=== PATIENT | female | born 1960 | race Caucasian/White ===

== ENCOUNTER 2018-06-28 16:53 | Inpatient (IN) | payer BC ==
[~2018-06-28] VITALS: Ht 175.3 cm; Wt 122.6 kg
--- OUTSIDE RECORDS SUMMARY | 2018-06-28 16:55 | XMS REPORT ---
Author Author [facility] Address Unknown Phone Unavailable Care Team Providers Care Case Fitter Name Role Phone Unavailable Unavailable Payers Payer Name Policy Type Policy Number Effective Date Expiration Date Problems This patient has no known problems. Allergies, Adverse Reactions, Alerts Allergy Name Allergy Type Status Severity Reaction(s) Onset Date Inactive Date Treating Clinician Comments Penicillins DA Active U 2016-05-19 00:00:00 Cephalosporins DA Active U 2016-05-19 00:00:00 Betalactams DA Active U 2016-05-19 00:00:00 Carbapenems DA Active U 2016-05-19 00:00:00 Medications This patient has no known medications.
--- OUTSIDE RECORDS SUMMARY | 2018-06-28 16:55 | XMS REPORT | Continuity of Care Document ---
Author Author [facility] Address Unknown Phone Unavailable Problems Problem Status Onset Date Classification Date Reported Comments Source History of heart failure 06/28/2018 Diagnosis 06/28/2018 [facility] Acute exacerbation of chronic congestive heart failure 06/28/2018 Diagnosis 06/28/2018 [facility] Dyspnea at rest 06/28/2018 Diagnosis 06/28/2018 [facility] Medications Medication Details Route Status Patient Instructions Ordering Provider Order Date Source Levothyroxine Sodium 0.05 MG Oral Tablet levothyroxine 50 mcg tablet Active [facility] Metoprolol Tartrate 25 MG Oral Tablet metoprolol tartrate 25 mg tablet Active [facility] Albuterol 0.09 MG/ACTUAT Metered Dose Inhaler ProAir HFA 90 mcg/actuation aerosol inhaler Active [facility] quetiapine 200 MG Oral Tablet quetiapine 200 mg tablet Active [facility] Risperidone 3 MG Oral Tablet risperidone 3 mg tablet Active [facility] Risperidone 4 MG Oral Tablet risperidone 4 mg tablet Active [facility] Allergies, Adverse Reactions, Alerts Substance Category Reaction Severity Reaction type Status Date Reported Comments Source Immunizations Immunization Date Given Site Status Last Updated Comments Source Results Order Name Results Value Reference Range Date Interpretation Comments Source Vital Signs Vital Sign Value Date Comments Source Encounters Location Location Details Encounter Type Encounter Number Reason For Visit Attending Provider ADM Date DC Date Status Source [place] - [facility] - [id number] Giovanna Anderson, [employer]: [address] [place] [address], Ph. [id number] Giovanna Anderson 06/28/2018 [facility] Procedures Procedure Code Date Perfomer Comments Source
--- OUTSIDE RECORDS SUMMARY | 2018-06-28 16:55 | XMS REPORT | Encounter Summary ---
Author Organization Unknown Address [address] [place] [address] Phone [phone] Reason for Visit Medical Complaint Instructions 1. Dyspnea at rest 2. Acute exacerbation of chronic congestive heart failure patient follow up phone call - CHF f/u after ER 3. History of heart failure Discussion Note: None recorded. Patient educational handouts: No information available. Plan of Care Patient Instructions Pt instructed to go to ER [facility] for further managment. Reminders Provider Appointments None recorded. Lab None recorded. Referral None recorded. Procedures None recorded. Surgeries None recorded. Imaging None recorded. Medications Name Start Date levothyroxine 50 mcg tablet metoprolol tartrate 25 mg tablet ProAir HFA 90 mcg/actuation aerosol inhaler quetiapine 200 mg tablet risperidone 3 mg tablet risperidone 4 mg tablet Medications Administered None recorded. Vitals None recorded. Lab Results None recorded. Allergies None recorded. Problems None recorded. Procedures None recorded. Vaccine List None recorded. Social History None recorded. Past Encounters 06/28/2018 Dyspnea at Rest; Acute Exacerbation of Chronic Congestive Heart Failure; History of Heart Failure Giovanna Anderson [facility]: [address] [place] [address], Ph. History of Present Illness Cough Reported By: Patient HPI: Location: chest. Quality: productive cough. Duration: 7 days. Severity: severe. Onset/Timing: gradual. Context: no sick contacts, no foreign travel, non- smoker; unmanaged CHF. Modifying factors: ; pt was seen in ER 3 days ago, released with albuterol inhaler. Associated Symptoms: no sputum production, no sweats, no significant weight gain, no significant weight loss, no sore throat, no vomiting, no diarrhea, no rash, no nausea, no fever/chills, no muscle aches, no headache, shortness of breath, wheezing, difficulty breathing at night, fatigue, edema, morning cough Review of Systems:ROS as noted in the HPI Review of Systems Basic Reported By: Patient Physical Exam Adult Basic, Adult Female Complete Reported By: Patient Constitutional: General Appearance: healthy-appearing, morbidly obese. Level of Distress: chronically ill. Ambulation: limited ambulation Psychiatric: Mental Status: active and alert. Orientation: to time, to place, to person Lungs: Respiratory effort: no dyspnea, no tachypnea, no use of accessory muscles, no intercostal retractions. Auscultation: wet rales/crackles Cardiovascular: Heart Auscultation: RRR, no murmurs Musculoskeletal:: Extremities: edema
[2018-06-28] MEDS ORDERED: SODIUM CHLORIDE 0.9% 1000ML 1,000 ML IV STA (20:53)
--- NOTE | 2018-06-28 21:53 | Diagnostic Imaging Report ---
EXAMINATION: CHEST 2 VIEWS INDICATION: Cough, shortness of breath. COMPARISON: None FINDINGS: PA and lateral views TUBES and LINES: None. LUNGS: Lungs are well inflated. Left basilar linear opacities likely representing atelectasis. There is no evidence of pulmonary edema. PLEURA: No pleural effusion or pneumothorax. HEART AND MEDIASTINUM: The cardiomediastinal silhouette is unremarkable. BONES AND SOFT TISSUES: Age-indeterminate compression deformities of three vertebral bodies, likely T7, T11, and T12. Compression at T12 worse with 80% loss of height. Soft tissues are unremarkable. UPPER ABDOMEN: No free air under the diaphragm. IMPRESSION: Left basilar opacities likely representing atelectasis. Developing pneumonia not excluded. Age-indeterminate compression deformities of three vertebral bodies, likely T7, T11, and T12. Signed by: DR. Karthikeyan Moseley MD on 06/28/2018 9:50 PM
[2018-06-28 22:08] LABS: BASOPHILS % 0.3 % (0.0-1.0); EOSINOPHILS % 0.3 % (0.0-6.0); HEMATOCRIT 35.4 % (34.2-44.1); HEMOGLOBIN 12.2 g/dL (12.0-16.0); LYMPHOCYTES # (AUTO) 0.9 (1.0-3.2); LYMPHOCYTES % 10.7 % (18.0-39.1); MEAN CORPUSCULAR HEMOGLOBIN 31.5 pg (28-32); MEAN CORPUSCULAR HGB CONC 34.5 g/dL (31-35); MEAN CORPUSCULAR VOLUME 91.5 fL (81-99); NEUTROPHILS # (AUTO) 6.1 (2.1-6.9); NEUTROPHILS % 75.9 % (38.7-80.0); PLATELET COUNT 211 x10e3/uL (140-360); RED BLOOD COUNT 3.87 x10e6/uL (3.6-5.1); RED CELL DISTRIBUTION WIDTH 12.9 % (11.7-14.4)
[2018-06-28] MEDS ORDERED: QUETIAPINE FUM200 MG PO (22:11)
[2018-06-28] MEDS ORDERED: RISPERIDONE4 MG PO (22:11)
[2018-06-28] MEDS ORDERED: METOPROLOL TART25 MG PO (22:11)
[2018-06-28] MEDS ORDERED: LEVOTHYROXINE50 MCG PO (22:11)
[2018-06-28 22:20] LABS: ALANINE AMINOTRANSFERASE 24 IU/L (0-55); ALBUMIN 3.4 g/dL (3.5-5.0); ALBUMIN/GLOBULIN RATIO 0.8 (0.8-2.0); ALKALINE PHOSPHATASE 110 IU/L (40-150); ANION GAP 17.2 mmol/L (8-16); BLOOD UREA NITROGEN 11 mg/dL (7-26); BUN/CREATININE RATIO 14 (6-25); CALCIUM 9.7 mg/dL (8.4-10.2); CARBON DIOXIDE 21 mmol/L (22-29); CHLORIDE 101 mmol/L (98-107); CREATINE KINASE 230 IU/L (29-168); EST GLOMERULAR FILTRATION RATE > 60 ML/MIN (60-); GLUCOSE 131 mg/dL (74-118); POTASSIUM 3.2 mmol/L (3.5-5.1); SODIUM 136 mmol/L (136-145)
[2018-06-28] MEDS ORDERED: ALBUTEROL/IPRATROPIUM 3 ML NEB NEB ONE (22:45)
[2018-06-28] MEDS ORDERED: METHYLPREDNISOLONE SOD SUCC 125 MG/2ML VIAL IV ONE (22:45)
[2018-06-28] MEDS ORDERED: RISPERIDONE 1 MG TAB ONE (23:36)
[2018-06-28] MEDS: QUETIAPINE FUMARATE 100 MG TAB PO SCH (23:44)
[2018-06-28] MEDS: RISPERIDONE 1 MG TAB PO SCH (23:44)
[2018-06-29] VITALS (8 sets, daily range): BP systolic 126–139; BP diastolic 68–72
[2018-06-29] MEDS ORDERED: METOPROLOL TARTRATE INJ 1 MG/ML VIAL IV ONE (01:15)
[2018-06-29] MEDS: AZITHROMYCIN 500MG/SOD CHL 0.9% 250ML BAG IV SCH (02:30)
[2018-06-29] MEDS: SODIUM CHLORIDE 0.9% 1000ML 1,000 ML IV SCH ×3 (02:50→16:57)
[2018-06-29] MEDS: CEFTRIAXONE SOD 1 GRAM/0.9% SOD CHL 50ML BAG IV SCH (02:50)
[2018-06-29] MEDS: ALBUTEROL SULF 0.083% NEB SOLN 3 ML NEB NEB SCH ×6 (03:25→23:10)
[2018-06-29] MEDS ORDERED: METOPROLOL TARTRATE 25 MG TAB ONE (05:22)
[2018-06-29] MEDS: METHYLPREDNISOLONE SOD SUCC 40 MG/ML VIAL IV SCH ×3 (05:40→18:01)
[2018-06-29] MEDS: IPRATROPIUM BROMIDE 0.02% 2.5 ML NEB NEB SCH ×4 (07:40→23:10)
[2018-06-29 14:30] LABS: FREE THYROXINE INDEX 2.109 (1.4-3.8); THYROID STIMULATING HORMONE 0.732 uIU/mL (0.350-4.940)
[2018-06-29] MEDS: METOPROLOL TARTRATE 25 MG TAB PO SCH (17:07)
[2018-06-29] MEDS: RISPERIDONE 1 MG TAB PO SCH (21:00)
[2018-06-29] MEDS: QUETIAPINE FUMARATE 100 MG TAB PO SCH (21:02)
[2018-06-30] VITALS (8 sets, daily range): BP systolic 126–173; BP diastolic 70–82
[2018-06-30] MEDS: METHYLPREDNISOLONE SOD SUCC 40 MG/ML VIAL IV SCH ×3 (00:25→20:49)
[2018-06-30] MEDS: CEFTRIAXONE SOD 1 GRAM/0.9% SOD CHL 50ML BAG IV SCH (00:50)
[2018-06-30] MEDS: SODIUM CHLORIDE 0.9% 1000ML 1,000 ML IV SCH ×3 (00:57→09:04)
[2018-06-30] MEDS: AZITHROMYCIN 500MG/SOD CHL 0.9% 250ML BAG IV SCH (01:30)
[2018-06-30] MEDS: ALBUTEROL SULF 0.083% NEB SOLN 3 ML NEB NEB SCH ×6 (03:35→23:15)
[2018-06-30 05:27] LABS: BASOPHILS % 0.3 % (0.0-1.0); HEMATOCRIT 30.4 % (34.2-44.1); HEMOGLOBIN 10.3 g/dL (12.0-16.0); LYMPHOCYTES # (AUTO) 0.5 (1.0-3.2); LYMPHOCYTES % 7.1 % (18.0-39.1); MEAN CORPUSCULAR HEMOGLOBIN 31.8 pg (28-32); MEAN CORPUSCULAR HGB CONC 33.9 g/dL (31-35); MEAN CORPUSCULAR VOLUME 93.8 fL (81-99); MONOCYTES # (AUTO) 0.5 (0.2-0.8); MONOCYTES % 6.6 % (4.4-11.3); NEUTROPHILS # (AUTO) 6.3 (2.1-6.9); NEUTROPHILS % 84.1 % (38.7-80.0); PLATELET COUNT 206 x10e3/uL (140-360); RED BLOOD COUNT 3.24 x10e6/uL (3.6-5.1)
[2018-06-30 05:50] LABS: ANION GAP 11.1 mmol/L (8-16); BLOOD UREA NITROGEN 14 mg/dL (7-26); BUN/CREATININE RATIO 20 (6-25); CALCIUM 8.4 mg/dL (8.4-10.2); CARBON DIOXIDE 22 mmol/L (22-29); CHLORIDE 110 mmol/L (98-107); CREATININE, SERUM 0.69 mg/dL (0.57-1.11); EST GLOMERULAR FILTRATION RATE > 60 ML/MIN (60-); GLUCOSE 173 mg/dL (74-118); POTASSIUM 3.1 mmol/L (3.5-5.1); SODIUM 140 mmol/L (136-145)
[2018-06-30] MEDS: LEVOTHYROXINE SODIUM 50 MCG TAB PO SCH (06:00)
--- NOTE | 2018-06-30 06:53 | Diagnostic Imaging Report ---
EXAMINATION: CHEST SINGLE (PORTABLE) INDICATION: Pneumonia. COMPARISON: 06/28/2018 FINDINGS: PA and lateral views TUBES and LINES: None. LUNGS: Increased left basilar opacity, concerning for pneumonia. Central pulmonary venous congestion. PLEURA: Possible trace left pleural effusion. No right pleural effusion. No pneumothorax. HEART AND MEDIASTINUM: The cardiomediastinal silhouette is unremarkable. BONES AND SOFT TISSUES: Age indeterminate compression deformities, better seen on prior two view chest radiograph. Soft tissues are unremarkable. UPPER ABDOMEN: No free air under the diaphragm. IMPRESSION: Increased left basilar opacity concerning for pneumonia. Signed by: DR. Karthikeyan Moseley MD on 06/30/2018 6:50 AM
[2018-06-30 06:59] LABS: ANISOCYTOSIS S; BAND NEUTROPHILS % (MANUAL) 2 %; LYMPHOCYTES % (MANUAL) 9 % (19-48); MONOCYTES % (MANUAL) 10 % (3.4-9.0); NEUTROPHILS % (MANUAL) 79 % (40-74); PLATELET ESTIMATE ADEQUATE; PLATELET MORPHOLOGY COMMENT NORMAL; POIKILOCYTOSIS S; RBC MORPHOLOGY COMMENT NORMAL
[2018-06-30] MEDS: IPRATROPIUM BROMIDE 0.02% 2.5 ML NEB NEB SCH ×4 (07:00→23:15)
[2018-06-30] MEDS: METOPROLOL TARTRATE 25 MG TAB PO SCH ×2 (09:04→17:34)
[2018-06-30] MEDS ORDERED: POTASSIUM CHLORIDE 20 MEQ TAB CR PO ONE ×2 (09:30→11:00)
[2018-06-30] MEDS ORDERED: ACETAMINOPHEN 325 MG TAB PO PRN (18:00)
[2018-06-30] MEDS: RISPERIDONE 1 MG TAB PO SCH (20:49)
[2018-06-30] MEDS: QUETIAPINE FUMARATE 100 MG TAB PO SCH (20:49)
[2018-07-01] VITALS (7 sets, daily range): BP systolic 138–179; BP diastolic 75–95
[2018-07-01] MEDS: CEFTRIAXONE SOD 1 GRAM/0.9% SOD CHL 50ML BAG IV SCH
[2018-07-01] MEDS: AZITHROMYCIN 500MG/SOD CHL 0.9% 250ML BAG IV SCH
[2018-07-01] MEDS: ACETYLCYSTEINE 20% INHAL SOLN 30 ML VIAL INH SCH ×2 (03:00→15:53)
[2018-07-01] MEDS: ALBUTEROL SULF 0.083% NEB SOLN 3 ML NEB NEB SCH ×6 (03:30→23:15)
[2018-07-01] MEDS: LEVOTHYROXINE SODIUM 50 MCG TAB PO SCH (05:03)
[2018-07-01 05:27] LABS: BASOPHILS # (AUTO) 0.1 (0.0-0.1); BASOPHILS % 0.5 % (0.0-1.0); HEMATOCRIT 33.3 % (34.2-44.1); HEMOGLOBIN 11.1 g/dL (12.0-16.0); LYMPHOCYTES # (AUTO) 0.7 (1.0-3.2); LYMPHOCYTES % 6.7 % (18.0-39.1); MEAN CORPUSCULAR HEMOGLOBIN 31.4 pg (28-32); MEAN CORPUSCULAR HGB CONC 33.3 g/dL (31-35); MEAN CORPUSCULAR VOLUME 94.1 fL (81-99); MONOCYTES # (AUTO) 0.6 (0.2-0.8); MONOCYTES % 6.3 % (4.4-11.3); NEUTROPHILS # (AUTO) 8.5 (2.1-6.9); NEUTROPHILS % 83.8 % (38.7-80.0); PLATELET COUNT 239 x10e3/uL (140-360); RED BLOOD COUNT 3.54 x10e6/uL (3.6-5.1); RED CELL DISTRIBUTION WIDTH 13.4 % (11.7-14.4)
[2018-07-01 06:01] LABS: ANION GAP 12.8 mmol/L (8-16); BLOOD UREA NITROGEN 21 mg/dL (7-26); BUN/CREATININE RATIO 28 (6-25); CALCIUM 8.8 mg/dL (8.4-10.2); CARBON DIOXIDE 22 mmol/L (22-29); CHLORIDE 111 mmol/L (98-107); CREATININE, SERUM 0.74 mg/dL (0.57-1.11); EST GLOMERULAR FILTRATION RATE > 60 ML/MIN (60-); GLUCOSE 157 mg/dL (74-118); POTASSIUM 3.8 mmol/L (3.5-5.1); SODIUM 142 mmol/L (136-145)
[2018-07-01] MEDS: IPRATROPIUM BROMIDE 0.02% 2.5 ML NEB NEB SCH ×3 (07:00→19:30)
[2018-07-01 07:45] LABS: BAND NEUTROPHILS % (MANUAL) 1 %; LYMPHOCYTES % (MANUAL) 5 % (19-48); METAMYELOCYTES % (MANUAL) 2 % (0-0); MONOCYTES % (MANUAL) 6 % (3.4-9.0); MYELOCYTES % (MANUAL) 1 % (0-0); NEUTROPHILS % (MANUAL) 83 % (40-74); SMUDGE CELLS FEW
[2018-07-01 07:46] LABS: ANISOCYTOSIS SLIGHT; HYPOCHROMASIA SLIGHT; PLATELET ESTIMATE ADEQUATE; PLATELET MORPHOLOGY COMMENT NORMAL; RBC MORPHOLOGY COMMENT NORMAL
[2018-07-01] MEDS: METOPROLOL TARTRATE 25 MG TAB PO SCH ×2 (09:00→17:19)
[2018-07-01] MEDS: METHYLPREDNISOLONE SOD SUCC 40 MG/ML VIAL IV SCH ×2 (09:00→20:28)
[2018-07-01] MEDS: RISPERIDONE 1 MG TAB PO SCH (20:28)
[2018-07-01] MEDS: QUETIAPINE FUMARATE 100 MG TAB PO SCH (20:28)
[2018-07-02] VITALS (8 sets, daily range): BP systolic 134–152; BP diastolic 73–92
[2018-07-02] MEDS: AZITHROMYCIN 500MG/SOD CHL 0.9% 250ML BAG IV SCH (00:45)
[2018-07-02] MEDS: CEFTRIAXONE SOD 1 GRAM/0.9% SOD CHL 50ML BAG IV SCH (00:45)
[2018-07-02] MEDS: IPRATROPIUM BROMIDE 0.02% 2.5 ML NEB NEB SCH ×4 (03:00→19:00)
[2018-07-02] MEDS: ALBUTEROL SULF 0.083% NEB SOLN 3 ML NEB NEB SCH ×5 (03:00→19:00)
[2018-07-02] MEDS: LEVOTHYROXINE SODIUM 50 MCG TAB PO SCH (05:20)
[2018-07-02] MEDS: ACETYLCYSTEINE 20% INHAL SOLN 30 ML VIAL INH SCH ×2 (07:00→15:13)
[2018-07-02] MEDS: METHYLPREDNISOLONE SOD SUCC 40 MG/ML VIAL IV SCH ×2 (09:35→22:12)
[2018-07-02] MEDS: METOPROLOL TARTRATE 25 MG TAB PO SCH ×2 (09:35→17:58)
[2018-07-02] MEDS: FLUCONAZOLE 200 MG/100 ML 100 ML IV SCH (17:58)
[2018-07-02] MEDS: RISPERIDONE 1 MG TAB PO SCH (21:02)
[2018-07-02] MEDS: QUETIAPINE FUMARATE 100 MG TAB PO SCH (21:02)
[2018-07-03] VITALS (7 sets, daily range): BP systolic 141–197; BP diastolic 82–106
[2018-07-03] MEDS ORDERED: SODIUM CHLORIDE 0.9% 250ML 250 ML ONE (00:02)
[2018-07-03] MEDS: CEFTRIAXONE SOD 1 GRAM/0.9% SOD CHL 50ML BAG IV SCH (00:09)
[2018-07-03] MEDS: AZITHROMYCIN 500MG/SOD CHL 0.9% 250ML BAG IV SCH (00:56)
[2018-07-03] MEDS: IPRATROPIUM BROMIDE 0.02% 2.5 ML NEB NEB SCH ×5 (01:00→23:43)
[2018-07-03] MEDS: LEVOTHYROXINE SODIUM 50 MCG TAB PO SCH (05:48)
[2018-07-03 06:06] LABS: BASOPHILS % 0.4 % (0.0-1.0); HEMATOCRIT 34.6 % (34.2-44.1); HEMOGLOBIN 11.4 g/dL (12.0-16.0); LYMPHOCYTES # (AUTO) 0.5 (1.0-3.2); LYMPHOCYTES % 7.7 % (18.0-39.1); MEAN CORPUSCULAR HEMOGLOBIN 31.8 pg (28-32); MEAN CORPUSCULAR HGB CONC 32.9 g/dL (31-35); MEAN CORPUSCULAR VOLUME 96.6 fL (81-99); MONOCYTES # (AUTO) 0.4 (0.2-0.8); MONOCYTES % 5.5 % (4.4-11.3); NEUTROPHILS # (AUTO) 5.8 (2.1-6.9); NEUTROPHILS % 82.4 % (38.7-80.0); PLATELET COUNT 228 x10e3/uL (140-360); RED BLOOD COUNT 3.58 x10e6/uL (3.6-5.1); RED CELL DISTRIBUTION WIDTH 13.2 % (11.7-14.4)
[2018-07-03 06:26] LABS: BLOOD UREA NITROGEN 28 mg/dL (7-26); BUN/CREATININE RATIO 40 (6-25); CALCIUM 8.5 mg/dL (8.4-10.2); CARBON DIOXIDE 25 mmol/L (22-29); CHLORIDE 109 mmol/L (98-107); EST GLOMERULAR FILTRATION RATE > 60 ML/MIN (60-); GLUCOSE 139 mg/dL (74-118); SODIUM 142 mmol/L (136-145)
[2018-07-03] MEDS: ALBUTEROL SULF 0.083% NEB SOLN 3 ML NEB NEB SCH ×5 (07:00→23:43)
[2018-07-03] MEDS: ACETYLCYSTEINE 20% INHAL SOLN 30 ML VIAL INH SCH ×4 (08:11→22:00)
[2018-07-03] MEDS: METHYLPREDNISOLONE SOD SUCC 40 MG/ML VIAL IV SCH ×2 (08:46→20:20)
[2018-07-03] MEDS: METOPROLOL TARTRATE 25 MG TAB PO SCH ×2 (08:47→16:29)
[2018-07-03 10:38] LABS: ANISOCYTOSIS SLIGHT; LYMPHOCYTES % (MANUAL) 5 % (19-48); MONOCYTES % (MANUAL) 5 % (3.4-9.0); NEUTROPHILS % (MANUAL) 90 % (40-74); PLATELET ESTIMATE ADEQUATE; PLATELET MORPHOLOGY COMMENT NORMAL; RBC MORPHOLOGY COMMENT NORMAL
[2018-07-03] MEDS: FLUCONAZOLE 200 MG/100 ML 100 ML IV SCH (16:28)
[2018-07-03] MEDS: LISINOPRIL 10 MG TAB PO SCH (16:29)
--- NOTE | 2018-07-03 17:42 | Diagnostic Imaging Report ---
EXAMINATION: CHEST 2 VIEWS INDICATION: Pneumonia. COMPARISON: 06/30/2017. FINDINGS: TUBES and LINES: None. LUNGS: Linear densities in the left lower lobe suggestive of platelike atelectasis. Additional patchy density in the left lung base medially may reflect resolving pneumonia. Mild bilateral pulmonary venous congestion. PLEURA: No pleural effusion or pneumothorax. Biapical pleural scarring, right greater than left. HEART AND MEDIASTINUM: The cardiomediastinal silhouette is mildly enlarged. BONES AND SOFT TISSUES: Compression fracture at T11 and T12 with kyphosis at this level again observed. UPPER ABDOMEN: No free air under the diaphragm. IMPRESSION: 1. Findings suggestive of resolving pneumonia in the left lung base. Left basilar platelike atelectasis. Recommend follow-up to resolution. 2. Mild pulmonary venous congestion. Signed by: Dr. Landon Estevez M.D. on 07/03/2018 5:39 PM
[2018-07-03] MEDS: RISPERIDONE 1 MG TAB PO SCH (20:20)
[2018-07-03] MEDS: QUETIAPINE FUMARATE 100 MG TAB PO SCH (20:20)
[2018-07-04] VITALS: BP 172/88
[2018-07-04] MEDS: CEFTRIAXONE SOD 1 GRAM/0.9% SOD CHL 50ML BAG IV SCH (01:00)
[2018-07-04] MEDS: AZITHROMYCIN 500MG/SOD CHL 0.9% 250ML BAG IV SCH (02:00)
[2018-07-04] MEDS: ALBUTEROL SULF 0.083% NEB SOLN 3 ML NEB NEB SCH ×3 (03:25→11:00)
[2018-07-04 04:00] VITALS: BP 192/97
[2018-07-04] MEDS: LEVOTHYROXINE SODIUM 50 MCG TAB PO SCH (05:42)
[2018-07-04] MEDS: METOPROLOL TARTRATE 25 MG TAB PO SCH (05:42)
[2018-07-04] MEDS: LISINOPRIL 10 MG TAB PO SCH (05:43)
[2018-07-04] MEDS: IPRATROPIUM BROMIDE 0.02% 2.5 ML NEB NEB SCH ×2 (07:00→11:00)
[2018-07-04] MEDS: ACETYLCYSTEINE 20% INHAL SOLN 30 ML VIAL INH SCH (07:22)
[2018-07-04 07:59] VITALS: BP 164/91
[2018-07-04 08:29] VITALS: BP 146/84
[2018-07-04 08:31] VITALS: BP 146/84
[2018-07-04] MEDS: METHYLPREDNISOLONE SOD SUCC 40 MG/ML VIAL IV SCH (08:31)
[2018-07-04 11:40] VITALS: BP 140/79
[2018-07-04] MEDS ORDERED: HYDROCHLOROTHIAZIDE 25 MG TAB PO ONE (11:45)
== END 2018-07-04 13:56 | disposition home or self-care (01) | DRG 195 ==
LOC: ER 16:53 → ERHOLD 06-29 01:03 → IMCU 06-29 02:30 → OBSVTOIN 06-30 11:58 → MED/SURG3 07-02 21:09
DX: J18.9 Pneumonia, unspecified organism (principal); J45.909 Unspecified asthma, uncomplicated; I10 Essential (primary) hypertension; E03.9 Hypothyroidism, unspecified; E78.5 Hyperlipidemia, unspecified; F03.90 Unspecified dementia, unspecified severity, without behavioral disturbance, psychotic disturbance, mood disturbance, and anxiety; E66.9 Obesity, unspecified; Z68.39 Body mass index [BMI] 39.0-39.9, adult; Z85.3 Personal history of malignant neoplasm of breast
CPT/HCPCS: 36415; 71045; 71046; 80048; 80053; 82550; 82553; 83880; 84436; 84443; 84479; 84484; 85025; 87040; 87070; 87205; 93005; 94640; 94668; 96361; 99284; G0378; J0456; J0696; J1450; J2920; J2930; J7030; J7050

== ENCOUNTER → 2018-08-01 | Outpatient (CLI) | payer BC ==
[~2018-08-01] MED LIST: LEVOTHYROXINE50 MCG PO; METOPROLOL TART25 MG PO; QUETIAPINE FUM200 MG PO; RISPERIDONE4 MG PO
--- NOTE | 2018-08-01 11:56 | Diagnostic Imaging Report ---
EXAMINATION: CHEST 2 VIEWS INDICATION: Follow-up pneumonia COMPARISON: Chest radiograph 07/03/2018. FINDINGS: TUBES and LINES: None. LUNGS: Status post interval clearing of consolidative opacity within the left lung base. No evidence of new consolidation. No evidence of pulmonary edema. Mild linear subsegmental atelectasis in the left lower lung, improved from the prior radiograph. PLEURA: No pleural effusion or pneumothorax. HEART AND MEDIASTINUM: The cardiomediastinal silhouette is unremarkable. BONES AND SOFT TISSUES: No acute osseous abnormality. There is an old healed right lower rib fracture. UPPER ABDOMEN: No free air under the diaphragm. IMPRESSION: Interval clearing of consolidative opacity at the left lung base, suggestive of resolution of pneumonia. No new consolidation. Signed by: Dr. Gina Yo MD on 08/01/2018 11:52 AM
== END ==
LOC: RAD 10:46
DX: Z09 Encounter for follow-up examination after completed treatment for conditions other than malignant neoplasm (principal); J18.9 Pneumonia, unspecified organism
CPT/HCPCS: 71046